=== PATIENT | female | born 1945 | race Caucasian/White ===

== ENCOUNTER 2017-01-09 04:48 | Emergency (ER) | payer OTHER, BC ==
[~2017-01-09] VITALS: Ht 172.7 cm; Wt 97.5 kg
[~2017-01-09 04:48] MED LIST: ADVIL200 M1 PO; ASPIRIN EC325 MG PO; Aspirin E.C. PO; BENADRYL50 MG PO; BYSTOLIC5 MG PO; CALCIUM CARBON260 MG PO; CALCIUM CARBON650 MG PO; CELECOXIB200 MG PO; CLARITIN,ALAVAR10 MG PO; Calcium Carbonate,Ca PO; DOK PLUS TABLE1 EACH PO; FIBER TABS625 MG PO; FISH OIL 1,2001 EAC5 PO; Fish Oil PO; Flexeril PO; HYDROCODON-ACE1 EAC7 PO; HYZAAR 100-11 TABLET PO; LEVOTHYROXINE175 MCG PO; LO-DOSE ASPIRIN81 M1 PO; MELOXICAM15 MG PO; MOVE FREE1 CAPSULE PO; Norvasc PO; PREMARIN VAGI42.5 GM VG; PROBIOTIC1 EAC1 PO; SINGULAIR10 MG PO; SYNTHROID137 MCG PO; TYLENOL EXTRA500 MG PO; Theragran PO; VITAMIN E400 UNIT PO; Vitamin-E PO; ZYRTEC10 M3 PO; predniSONE PO
[2017-01-09] MEDS ORDERED: PEPCID20 MG PO (06:46)
[2017-01-09] MEDS ORDERED: EPIPEN ADU0.3 MG/0.3 IM (06:46)
[2017-01-09 07:20] VITALS: BP 145/69
== END 2017-01-09 07:22 | disposition home or self-care (01) ==
LOC: EME 04:48
DX: T78.40XA Allergy, unspecified, initial encounter (principal); L50.9 Urticaria, unspecified; I10 Essential (primary) hypertension
CPT/HCPCS: 99281; 99285; J1100; J1200; J7030; S0028